=== PATIENT | male | born 1960 | race Caucasian/White ===

== ENCOUNTER 2024-04-05 17:41 | Inpatient (IN) | payer OTHER ==
[2024-04-05] MEDS ORDERED: CEFEPIME 2 GM/100 ML BAG IVPB ONE (18:30)
[2024-04-05 18:38] LABS: VENOUS O2 SATURATION 88.3 % (70-80); VENOUS PH 7.317 (7.310-7.410)
[2024-04-05 18:45] LABS: HEMATOCRIT 31.7 % (35.4-49); HEMOGLOBIN 9.5 GM/dL (11.7-16.9); MCH 25.7 pg (25.7-33.7); MCHC 29.8 g/dl (32.0-35.9); MEAN CELL VOLUME 86.2 fl (80-96); MEAN PLT VOLUME 8.4 fl (7.5-11.1); PLATELET COUNT 511 10^3/uL (134-434); RBC 3.68 M/mm3 (4.00-5.60); RDW 18.3 % (11.9-15.9)
[2024-04-05 18:46] LABS: VENOUS PCO2 100.6 mmHg (38-52)
[2024-04-05 18:51] LABS: WHITE BLOOD COUNT 33.2 K/mm3 (4.0-10.0)
[2024-04-05 18:55] LABS: INR 1.25 (0.83-1.09)
[2024-04-05 18:58] LABS: ACTIVATED PTT 40.7 SECONDS (25.2-36.5)
[2024-04-05 19:00] LABS: CHLORIDE 92 mmol/L (98-107); POTASSIUM 3.7 mmol/L (3.5-5.1); SODIUM 142 mmol/L (136-145)
[2024-04-05 19:02] LABS: CALCIUM 10.7 mg/dL (8.5-10.1)
[2024-04-05 19:03] LABS: ALBUMIN 1.3 g/dl (3.4-5.0); BLOOD UREA NITROGEN 54.8 mg/dL (7-18); GLUCOSE,RANDOM 107 mg/dL (74-106)
[2024-04-05 19:06] LABS: CREATININE 0.4 mg/dL (0.55-1.3); SGOT/AST 35 U/L (15-37); SGPT/ALT 46 U/L (13-61)
[2024-04-05 19:07] LABS: BILIRUBIN,TOTAL 0.3 mg/dL (0.2-1); TOT PROT 7.5 g/dl (6.4-8.2)
[2024-04-05 19:08] LABS: LACTIC ACID 2.1 mmol/L (0.4-2.0)
[2024-04-05 19:09] LABS: ALK PHOS 308 U/L (45-117)
[2024-04-05 19:09] LABS: ARTERIAL BLD GAS O2 SATURATION 87.7 % (95-98); ARTERIAL BLOOD GAS BASE EXCESS 23.9 mmol/L (-2-2); ARTERIAL BLOOD GAS pH 7.403 (7.350-7.450)
[2024-04-05] MEDS: SODIUM CHLORIDE 0.9% 500 ML INFUS.BAG IV ONE (19:11)
[2024-04-05] MEDS: CEFEPIME HCL 2 GM VIAL (RESTRICTED TO ID) IVPB ONE (19:12)
[2024-04-05] MEDS: ACETAMINOPHEN 1000 MG/100 ML BAG IVPB ONE (19:12)
[2024-04-05 19:23] LABS: ANION GAP 5 mmol/L (4-13); CO2 > 45 mmol/L (21-32)
[2024-04-05] MEDS: CEFEPIME 2 GM in DEXTROSE 5%-WATER 100 ML IVPB ONE (19:36)
[2024-04-05] MEDS: VANCOMYCIN PREMIX 1.5 GM 1,500 MG/300 ML BAG IVPB ONE (19:40)
[2024-04-05] MEDS: LACTATED RINGERS SOLUTION 1000 ML INFUS.BAG IV ONE (19:56)
[2024-04-05 20:19] LABS: ANISOCYTOSIS 2+; MACROCYTOSIS 0; TARGET CELLS 1+
[2024-04-05] MEDS: MUPIROCIN 2% TOPICAL OINTMENT FOR DECOLONIZATION NS SCH (21:40)
[2024-04-05] MEDS: LACTATED RINGERS SOLUTION 1,000 ML/1,000 ML INFUS.BAG IV STA (21:40)
[2024-04-05] MEDS: CHLORHEXIDINE GLUCONATE 4% CLEANSER FOR DECOLONIZATION TP SCH (21:41)
[2024-04-05] MEDS: FAMOTIDINE 20 MG/50 ML IVPB 20 MG/50 ML MG IVPB SCH (21:41)
[2024-04-05] MEDS ORDERED: NOREPINEPHRINE BITARTRATE 4 MG/4 ML ML IV ONE (22:03)
[2024-04-05] MEDS: NOREPINEPHRINE BITARTRATE 4,000 MCG in DEXTROSE 5%-WATER - 496 ML IV SCH (22:04)
[2024-04-06] MEDS: CEFEPIME 1 GM in DEXTROSE 5%-WATER 100 ML IVPB SCH ×2 (01:31→17:14)
[2024-04-06 01:53] LABS: EPI CELLS >36 /uL (0-25.1); HYALINE CASTS 20 /uL (0-3.1); URINE APPEARANCE CLOUDY; URINE BACTERIA 46 /uL (0-1359); URINE BILIRUBIN NEGATIVE (NEGATIVE); URINE COLOR YELLOW; URINE GLUCOSE (UA) NEGATIVE (NEGATIVE); URINE KETONE NEGATIVE (NEGATIVE); URINE LEUK ESTERASE NEGATIVE (NEGATIVE); URINE NITRITE NEGATIVE (NEGATIVE); URINE PROTEIN 1+ (NEGATIVE); URINE RBC 926 /uL (0-23.9)
[2024-04-06 01:53] LABS: ARTERIAL BLD GAS O2 SATURATION 94.9 % (95-98); ARTERIAL BLOOD GAS BASE EXCESS 16.1 mmol/L (-2-2); ARTERIAL BLOOD GAS PO2 78.8 mmHg (80-100); ARTERIAL BLOOD GAS pH 7.387 (7.350-7.450)
[2024-04-06] MEDS: HYDROCORTISONE SOD SUCCINATE 100 MG/2 ML VIAL IVPB SCH (04:25)
[2024-04-06] MEDS: ACETAMINOPHEN 1000 MG/100 ML BAG IVPB PRN (05:06)
[2024-04-06] MEDS: VANCOMYCIN/WATER FOR INJ (PEG) 1,000 MG/200 ML BAG IVPB SCH ×2 (06:04→21:32)
[2024-04-06 06:54] LABS: ARTERIAL BLD GAS O2 SATURATION 81.3 % (95-98); ARTERIAL BLOOD GAS BASE EXCESS 14.2 mmol/L (-2-2); ARTERIAL BLOOD GAS PO2 49.1 mmHg (80-100); ARTERIAL BLOOD GAS pH 7.364 (7.350-7.450)
[2024-04-06 07:01] LABS: HEMATOCRIT 26.2 % (35.4-49); HEMOGLOBIN 8.3 GM/dL (11.7-16.9); MCHC 31.8 g/dl (32.0-35.9); MEAN CELL VOLUME 85.1 fl (80-96); MEAN PLT VOLUME 8.6 fl (7.5-11.1); PLATELET COUNT 446 10^3/uL (134-434); RBC 3.08 M/mm3 (4.00-5.60); RDW 18.2 % (11.9-15.9); WHITE BLOOD COUNT 29.2 K/mm3 (4.0-10.0)
[2024-04-06 07:20] LABS: POTASSIUM 3.5 mmol/L (3.5-5.1)
[2024-04-06 07:22] LABS: ALBUMIN 1.2 g/dl (3.4-5.0); CALCIUM 9.8 mg/dL (8.5-10.1)
[2024-04-06 07:23] LABS: BLOOD UREA NITROGEN 41.3 mg/dL (7-18)
[2024-04-06 07:25] LABS: CHOLESTEROL 99 mg/dL (50-200); CREATININE 0.3 mg/dL (0.55-1.3); PHOSPHOROUS 2.4 mg/dL (2.5-4.9)
[2024-04-06 07:27] LABS: BILIRUBIN,TOTAL 0.4 mg/dL (0.2-1); LDL CHOLESTEROL (ONLY SJRH) 55 mg/dL (5-100); TOT PROT 6.4 g/dl (6.4-8.2)
[2024-04-06] MEDS: ALBUTEROL SO4 0.083% IH SOL 2.5 MG/3 ML VIAL.NEB. NEB SCH (07:55)
[2024-04-06] MEDS: IPRATROPIUM BR 0.02% 0.5 MG/2.5 ML VIAL.NEB. NEB SCH (07:55)
[2024-04-06 09:02] LABS: ANISOCYTOSIS 0; MACROCYTOSIS 0
[2024-04-06] MEDS: VASopressin 40 UNITS/100 ML BAG IV SCH (09:27)
[2024-04-06] MEDS: ENOXAPARIN NA (PORCINE) 40 MG/0.4 ML DISP.SYRIN SQ SCH (09:28)
[2024-04-06] MEDS: ASPIRIN 81 MG CHEWABLE TABLETS PEG SCH (09:29)
[2024-04-06] MEDS ORDERED: PNEUMOC 20-VAL CONJ-DIP CRM/PF 0.5 ML SYRINGE IM ONE (10:00)
[2024-04-06 10:20] LABS: HDL CHOLESTEROL 16 mg/dL (40-60)
[2024-04-06] MEDS: CEFEPIME HCL 1 GM VIAL (RESTRICTED TO ID) IVPB SCH (13:41)
[2024-04-06] MEDS: VANCOMYCIN 1,000 MG in DEXTROSE 5%-WATER - 250 ML IVPB SCH (13:41)
[2024-04-06] MEDS: ALBUTEROL SO4 2.5/IPRATROPIUM 0.5 INH SOL 3 ML VIAL.NEB. NEB SCH (20:44)
[2024-04-06] MEDS: ATORVASTATIN CA 40 MG TABLET (FP) PO SCH (21:32)
[2024-04-07 08:13] LABS: HEMATOCRIT 28.8 % (35.4-49); HEMOGLOBIN 8.7 GM/dL (11.7-16.9); MCH 26.1 pg (25.7-33.7); MCHC 30.2 g/dl (32.0-35.9); MEAN CELL VOLUME 86.5 fl (80-96); MEAN PLT VOLUME 9.1 fl (7.5-11.1); PLATELET COUNT 456 10^3/uL (134-434); RBC 3.32 M/mm3 (4.00-5.60); RDW 18.3 % (11.9-15.9); WHITE BLOOD COUNT 29.3 K/mm3 (4.0-10.0)
[2024-04-07 08:28] LABS: POTASSIUM 3.2 mmol/L (3.5-5.1)
[2024-04-07 08:30] LABS: CALCIUM 10.5 mg/dL (8.5-10.1)
[2024-04-07 08:31] LABS: ALBUMIN 1.1 g/dl (3.4-5.0); BLOOD UREA NITROGEN 35.6 mg/dL (7-18); MAGNESIUM 2.1 mg/dL (1.8-2.4)
[2024-04-07 08:33] LABS: PHOSPHOROUS 3.4 mg/dL (2.5-4.9)
[2024-04-07 08:34] LABS: CREATININE 0.3 mg/dL (0.55-1.3)
[2024-04-07 08:35] LABS: BILIRUBIN,TOTAL 0.3 mg/dL (0.2-1); TOT PROT 6.5 g/dl (6.4-8.2)
[2024-04-07 09:05] LABS: ANISOCYTOSIS 0; MACROCYTOSIS 0
[2024-04-07] MEDS: MIDODRINE HCL 5 MG TABLET GT SCH (09:25)
[2024-04-07] MEDS: SODIUM CHLORIDE 1,000 ML IV STA ×2 (11:00→12:20)
[2024-04-07] MEDS: POTASSIUM CHLORIDE ORAL LIQUID 20 MEQ/15 ML GT SCH (11:00)
[2024-04-07] MEDS: AMINO ACIDS/PROTEIN HYDROLYS 30 ML LIQUID.PKT PO SCH (17:51)
[2024-04-07] MEDS: ACETAMINOPHEN 650 MG/20.3 ML ORAL SOLUTION (CUPS) PO ONE (18:52)
[2024-04-08] MEDS ORDERED: NOREPINEPHRINE BITARTRATE 4 MG/4 ML ML IV ONE (03:57)
[2024-04-08 08:12] LABS: HEMATOCRIT 27.1 % (35.4-49); MCH 26.5 pg (25.7-33.7); MCHC 29.7 g/dl (32.0-35.9); MEAN CELL VOLUME 89.5 fl (80-96); MEAN PLT VOLUME 8.8 fl (7.5-11.1); PLATELET COUNT 465 10^3/uL (134-434); RBC 3.03 M/mm3 (4.00-5.60); RDW 18.6 % (11.9-15.9); WHITE BLOOD COUNT 26.1 K/mm3 (4.0-10.0)
[2024-04-08 08:27] LABS: POTASSIUM 4.4 mmol/L (3.5-5.1)
[2024-04-08 08:34] LABS: ALBUMIN 1.1 g/dl (3.4-5.0); BLOOD UREA NITROGEN 44.6 mg/dL (7-18); CALCIUM 10.3 mg/dL (8.5-10.1); MAGNESIUM 2.3 mg/dL (1.8-2.4)
[2024-04-08 08:37] LABS: CREATININE 0.4 mg/dL (0.55-1.3); PHOSPHOROUS 4.4 mg/dL (2.5-4.9)
[2024-04-08 08:38] LABS: TOT PROT 6.4 g/dl (6.4-8.2)
[2024-04-08 08:39] LABS: BILIRUBIN,TOTAL 0.3 mg/dL (0.2-1)
[2024-04-08 09:13] LABS: ANISOCYTOSIS 2+; MACROCYTOSIS 0
[2024-04-08] MEDS: ASCORBIC ACID 500 MG/5 ML UNIT DOSE CUP PEG SCH (09:23)
[2024-04-08] MEDS: NOREPINEPHRINE 0.9 % NACL 8 MG/250 ML BAG IVPB SCH (20:36)
[2024-04-08] MEDS: DOCUSATE NA 100 MG/10 ML UNIT-DOSE CUPS PEG SCH (21:09)
[2024-04-08] MEDS: SENNOSIDES 8.8 MG/5 ML SYRUP PEG SCH (21:09)
[2024-04-09 06:50] LABS: HEMATOCRIT 26.7 % (35.4-49); HEMOGLOBIN 7.9 GM/dL (11.7-16.9); MCH 26.9 pg (25.7-33.7); MCHC 29.7 g/dl (32.0-35.9); MEAN CELL VOLUME 90.7 fl (80-96); PLATELET COUNT 428 10^3/uL (134-434); RBC 2.95 M/mm3 (4.00-5.60); RDW 18.2 % (11.9-15.9); WHITE BLOOD COUNT 24.5 K/mm3 (4.0-10.0)
[2024-04-09 07:09] LABS: POTASSIUM 4.8 mmol/L (3.5-5.1)
[2024-04-09 07:16] LABS: ARTERIAL BLD GAS O2 SATURATION 90.5 % (95-98); ARTERIAL BLOOD GAS BASE EXCESS 5.5 mmol/L (-2-2); ARTERIAL BLOOD GAS PO2 78.9 mmHg (80-100)
[2024-04-09 07:17] LABS: ALBUMIN 1.1 g/dl (3.4-5.0); CALCIUM 10.3 mg/dL (8.5-10.1); MAGNESIUM 2.5 mg/dL (1.8-2.4)
[2024-04-09 07:18] LABS: BLOOD UREA NITROGEN 60.8 mg/dL (7-18)
[2024-04-09 07:19] LABS: PHOSPHOROUS 4.5 mg/dL (2.5-4.9)
[2024-04-09 07:20] LABS: BILIRUBIN,TOTAL 0.3 mg/dL (0.2-1); CREATININE 0.6 mg/dL (0.55-1.3); TOT PROT 6.4 g/dl (6.4-8.2)
[2024-04-09 07:25] LABS: VENT MODE A/C
[2024-04-09 07:26] LABS: VENT RATE 24
[2024-04-09 07:29] LABS: ARTERIAL BLOOD GAS pH 7.146 (7.350-7.450)
[2024-04-09] MEDS: SODIUM BICARBONATE 8.4% 50 MEQ/50 ML DISP.SYRIN IVPUSH ONE (08:18)
[2024-04-09 09:43] LABS: ARTERIAL BLD GAS O2 SATURATION 91.1 % (95-98); ARTERIAL BLOOD GAS BASE EXCESS 6.5 mmol/L (-2-2); ARTERIAL BLOOD GAS PO2 79.5 mmHg (80-100)
[2024-04-09 09:44] LABS: ALLENS TEST POSITIVE
[2024-04-09 09:45] LABS: VENT MODE AC; VENT RATE 26
[2024-04-09 09:48] LABS: ARTERIAL BLOOD GAS pH 7.166 (7.350-7.450)
[2024-04-09] MEDS: CEFTAZIDIME/AVIBACTAM 2.5 GM in DEXTROSE 5%-WATER - 250 ML IVPB SCH (12:07)
[2024-04-09] MEDS ORDERED: METOCLOPRAMIDE HCL INJECTION 10 MG/2 ML VIAL IVPUSH PRN (14:30)
[2024-04-09] MEDS: METOCLOPRAMIDE HCL INJECTION 10 MG/2 ML VIAL IVPUSH SCH (15:39)
[2024-04-09 16:08] LABS: ARTERIAL BLD GAS O2 SATURATION 95.9 % (95-98); ARTERIAL BLOOD GAS BASE EXCESS 8.1 mmol/L (-2-2); ARTERIAL BLOOD GAS PO2 104.4 mmHg (80-100)
[2024-04-09 16:11] LABS: ALLENS TEST POSITIVE; VENT MODE A/C
[2024-04-09 16:12] LABS: VENT RATE 26
[2024-04-09 16:13] LABS: ARTERIAL BLOOD GAS pH 7.188 (7.350-7.450)
[2024-04-09 20:27] LABS: ARTERIAL BLOOD GAS BASE EXCESS 9.2 mmol/L (-2-2); ARTERIAL BLOOD GAS PO2 130.2 mmHg (80-100)
[2024-04-09 20:29] LABS: VENT MODE A/C; VENT RATE 26
[2024-04-10 05:58] LABS: ARTERIAL BLD GAS O2 SATURATION 96.4 % (95-98); ARTERIAL BLOOD GAS BASE EXCESS 10.2 mmol/L (-2-2); ARTERIAL BLOOD GAS PO2 96.8 mmHg (80-100); ARTERIAL BLOOD GAS pH 7.312 (7.350-7.450)
[2024-04-10 06:00] LABS: VENT MODE A/C; VENT RATE 26
[2024-04-10 06:50] LABS: HEMATOCRIT 22.2 % (35.4-49); MCH 27.2 pg (25.7-33.7); MCHC 30.7 g/dl (32.0-35.9); MEAN CELL VOLUME 88.4 fl (80-96); MEAN PLT VOLUME 8.9 fl (7.5-11.1); PLATELET COUNT 353 10^3/uL (134-434); RBC 2.51 M/mm3 (4.00-5.60); RDW 18.2 % (11.9-15.9); WHITE BLOOD COUNT 19.1 K/mm3 (4.0-10.0)
[2024-04-10 07:07] LABS: HEMOGLOBIN 6.8 GM/dL (11.7-16.9)
[2024-04-10 07:09] LABS: POTASSIUM 3.8 mmol/L (3.5-5.1)
[2024-04-10 07:13] LABS: BLOOD UREA NITROGEN 74.3 mg/dL (7-18); MAGNESIUM 2.5 mg/dL (1.8-2.4)
[2024-04-10 07:15] LABS: PHOSPHOROUS 3.8 mg/dL (2.5-4.9)
[2024-04-10 07:16] LABS: CREATININE 0.8 mg/dL (0.55-1.3)
[2024-04-10 07:17] LABS: BILIRUBIN,TOTAL 0.4 mg/dL (0.2-1)
[2024-04-10 08:48] LABS: HEMATOCRIT 21.9 % (35.4-49); MCH 26.9 pg (25.7-33.7); MCHC 30.6 g/dl (32.0-35.9); MEAN CELL VOLUME 87.8 fl (80-96); MEAN PLT VOLUME 8.8 fl (7.5-11.1); PLATELET COUNT 348 10^3/uL (134-434); WHITE BLOOD COUNT 18.3 K/mm3 (4.0-10.0)
[2024-04-10 08:54] LABS: HEMOGLOBIN 6.7 GM/dL (11.7-16.9)
[2024-04-10 09:04] LABS: ANISOCYTOSIS 1+; MACROCYTOSIS 0
[2024-04-10 09:08] LABS: PLATELET ESTIMATE ADEQUATE
[2024-04-10 09:24] LABS: RETICULOCYTES 1.07 % (0.5-1.5)
[2024-04-10] MEDS: SODIUM CHLORIDE 1,000 ML IV SCH (14:30)
[2024-04-10 14:32] VITALS: BMI 24.0
[2024-04-10 17:19] LABS: HEMOGLOBIN 7.6 GM/dL (11.7-16.9); MCH 27.1 pg (25.7-33.7); MCHC 31.8 g/dl (32.0-35.9); MEAN CELL VOLUME 85.3 fl (80-96); MEAN PLT VOLUME 8.8 fl (7.5-11.1); PLATELET COUNT 318 10^3/uL (134-434); RBC 2.81 M/mm3 (4.00-5.60); RDW 17.8 % (11.9-15.9); WHITE BLOOD COUNT 16.2 K/mm3 (4.0-10.0)
[2024-04-10 17:43] LABS: ANISOCYTOSIS 2+; MACROCYTOSIS 0; TARGET CELLS 1+
[2024-04-11 06:42] LABS: HEMATOCRIT 23.9 % (35.4-49); HEMOGLOBIN 7.8 GM/dL (11.7-16.9); MCH 29.2 pg (25.7-33.7); MCHC 32.5 g/dl (32.0-35.9); MEAN CELL VOLUME 89.9 fl (80-96); MEAN PLT VOLUME 8.9 fl (7.5-11.1); PLATELET COUNT 309 10^3/uL (134-434); RBC 2.66 M/mm3 (4.00-5.60); RDW 17.5 % (11.9-15.9); WHITE BLOOD COUNT 13.4 K/mm3 (4.0-10.0)
[2024-04-11 06:48] LABS: POTASSIUM 3.6 mmol/L (3.5-5.1)
[2024-04-11 06:52] LABS: CALCIUM 9.6 mg/dL (8.5-10.1)
[2024-04-11 06:53] LABS: BLOOD UREA NITROGEN 82.2 mg/dL (7-18); MAGNESIUM 2.4 mg/dL (1.8-2.4)
[2024-04-11 06:55] LABS: CREATININE 0.8 mg/dL (0.55-1.3)
[2024-04-11 06:56] LABS: BILIRUBIN,TOTAL 0.4 mg/dL (0.2-1); PHOSPHOROUS 3.7 mg/dL (2.5-4.9); TOT PROT 6.2 g/dl (6.4-8.2)
[2024-04-11 09:08] LABS: ANISOCYTOSIS 0; HELMET CELLS 0; HOWELL-JOLLY BODIES 0; MACROCYTOSIS 0; OVALOCYTE 0; ROULEAU 0; SICKELED CELLS 0; TARGET CELLS 0; TEAR DROP CELLS 0; TOXIC GRANULATION 0
[2024-04-11] MEDS: SODIUM CHLORIDE 1,000 ML IV SCH (14:38)
[2024-04-11] MEDS: HYDROCORTISONE SOD SUCCINATE 100 MG/2 ML VIAL IVPB SCH (17:14)
[2024-04-12 07:34] LABS: HEMATOCRIT 23.7 % (35.4-49); HEMOGLOBIN 7.7 GM/dL (11.7-16.9); MCH 29.6 pg (25.7-33.7); MCHC 32.6 g/dl (32.0-35.9); MEAN CELL VOLUME 90.8 fl (80-96); MEAN PLT VOLUME 9.1 fl (7.5-11.1); PLATELET COUNT 327 10^3/uL (134-434); RBC 2.61 M/mm3 (4.00-5.60); RDW 17.5 % (11.9-15.9); WHITE BLOOD COUNT 12.7 K/mm3 (4.0-10.0)
[2024-04-12 07:38] LABS: POTASSIUM 3.1 mmol/L (3.5-5.1)
[2024-04-12 07:39] LABS: BLOOD UREA NITROGEN 81.6 mg/dL (7-18); CALCIUM 9.4 mg/dL (8.5-10.1)
[2024-04-12 07:40] LABS: MAGNESIUM 2.2 mg/dL (1.8-2.4)
[2024-04-12 07:42] LABS: CREATININE 0.8 mg/dL (0.55-1.3); PHOSPHOROUS 3.5 mg/dL (2.5-4.9)
[2024-04-12 07:43] LABS: BILIRUBIN,TOTAL 0.4 mg/dL (0.2-1)
[2024-04-12] MEDS: POTASSIUM CHLORIDE ORAL LIQUID 20 MEQ/15 ML PO ONE (09:23)
[2024-04-12 09:57] LABS: ANISOCYTOSIS 0; MACROCYTOSIS 0
[2024-04-12 10:16] LABS: PLATELET ESTIMATE ADEQUATE
[2024-04-12] MEDS: LACTATED RINGERS SOLUTION 1,000 ML/1,000 ML INFUS.BAG IV STA (13:33)
[2024-04-12] MEDS: HYDROCORTISONE SOD SUCCINATE 100 MG/2 ML VIAL IVPUSH SCH (14:19)
[2024-04-12] MEDS: AMINO ACIDS 4.25%/D5W 1,000 ML IV SCH (14:19)
[2024-04-12] MEDS ORDERED: SODIUM CHLORIDE 1,000 ML IV SCH (19:48)
[2024-04-12] MEDS: BISACODYL 10 MG SUPP.RECT PR ONE (21:20)
[2024-04-12] MEDS: HEPARIN NA (PORCINE) 5,000 UNITS/ML 1ML VIAL SQ SCH (21:22)
[2024-04-12] MEDS: SENNOSIDES 8.8 MG/5 ML SYRUP PEG SCH (21:23)
[2024-04-12] MEDS: CHLORHEXIDINE GLUCONATE 4% CLEANSER FOR DECOLONIZATION TP SCH (21:23)
[2024-04-12] MEDS: FAMOTIDINE 20 MG/50 ML IVPB 20 MG/50 ML MG IVPB SCH (21:23)
[2024-04-12] MEDS: ATORVASTATIN CA 40 MG TABLET (FP) PO SCH (21:30)
[2024-04-12] MEDS ORDERED: HEPARIN NA (PORCINE) 5,000 UNITS/ML 1ML VIAL SQ SCH (22:00)
[2024-04-13] MEDS: HYDROCORTISONE SOD SUCCINATE 100 MG/2 ML VIAL IVPUSH SCH ×2 (01:00→17:02)
[2024-04-13] MEDS: CEFTAZIDIME/AVIBACTAM 2.5 GM in DEXTROSE 5%-WATER - 250 ML IVPB SCH (02:45)
[2024-04-13] MEDS: ACETAMINOPHEN 1000 MG/100 ML BAG IVPB PRN (06:25)
[2024-04-13 06:34] LABS: HEMATOCRIT 23.9 % (35.4-49); HEMOGLOBIN 7.5 GM/dL (11.7-16.9); MCH 28.9 pg (25.7-33.7); MCHC 31.6 g/dl (32.0-35.9); MEAN CELL VOLUME 91.6 fl (80-96); MEAN PLT VOLUME 9.2 fl (7.5-11.1); PLATELET COUNT 299 10^3/uL (134-434); RBC 2.61 M/mm3 (4.00-5.60); RDW 17.6 % (11.9-15.9); WHITE BLOOD COUNT 11.9 K/mm3 (4.0-10.0)
[2024-04-13 06:53] LABS: POTASSIUM 3.5 mmol/L (3.5-5.1)
[2024-04-13 06:55] LABS: BLOOD UREA NITROGEN 83.5 mg/dL (7-18); CALCIUM 9.6 mg/dL (8.5-10.1); MAGNESIUM 2.1 mg/dL (1.8-2.4)
[2024-04-13 06:58] LABS: CREATININE 0.8 mg/dL (0.55-1.3); PHOSPHOROUS 3.5 mg/dL (2.5-4.9)
[2024-04-13 07:00] LABS: BILIRUBIN,TOTAL 0.2 mg/dL (0.2-1); TOT PROT 5.5 g/dl (6.4-8.2)
[2024-04-13 08:37] LABS: ANISOCYTOSIS 0; HELMET CELLS 0; HOWELL-JOLLY BODIES 0; MACROCYTOSIS 0; OVALOCYTE 0; ROULEAU 0; SICKELED CELLS 0; TARGET CELLS 0; TEAR DROP CELLS 0; TOXIC GRANULATION 0
[2024-04-13] MEDS: POLYETHYLENE GLYCOL (HEALTHYLAX) 3350 17 GM PACKET PO SCH (10:00)
[2024-04-13] MEDS: MIDODRINE HCL 5 MG TABLET GT SCH (10:00)
[2024-04-13] MEDS: ASPIRIN 81 MG CHEWABLE TABLETS PEG SCH (10:00)
[2024-04-13] MEDS: DOCUSATE NA 100 MG/10 ML UNIT-DOSE CUPS PEG SCH (10:00)
[2024-04-13] MEDS: AMINO ACIDS/PROTEIN HYDROLYS 30 ML LIQUID.PKT PO SCH (10:00)
[2024-04-13] MEDS: ASCORBIC ACID 500 MG/5 ML UNIT DOSE CUP PEG SCH (10:00)
[2024-04-13] MEDS ORDERED: POLYETHYLENE GLYCOL (HEALTHYLAX) 3350 17 GM PACKET GT SCH (11:27)
[2024-04-13] MEDS: LACTULOSE 20 GM/30 ML UDC (FOR ORAL USE ONLY) GT ONE (11:51)
[2024-04-13] MEDS: BACITRACIN ZINC 15 GM TUBE TOPICAL OINTMENT TP SCH (11:52)
[2024-04-13] MEDS: AMINO ACIDS 4.25%/D5W 1,000 ML IV SCH (12:47)
[2024-04-13] MEDS ORDERED: SODIUM CHLORIDE 1,000 ML IV STA (15:31)
[2024-04-13 16:45] LABS: ALLENS TEST POSITIVE; ARTERIAL BLOOD GAS BASE EXCESS 2.1 mmol/L (-2-2); ARTERIAL BLOOD GAS PO2 80.4 mmHg (80-100); ARTERIAL BLOOD GAS pH 7.222 (7.350-7.450); VENT MODE A/C; VENT RATE 26
[2024-04-13] MEDS: SODIUM CHLORIDE 1,000 ML IV SCH ×2 (16:55→21:37)
[2024-04-13] MEDS: POTASSIUM CHLORIDE ORAL LIQUID 20 MEQ/15 ML GT ONE (16:59)
[2024-04-13] MEDS: NOREPINEPHRINE 0.9 % NACL 8 MG/250 ML BAG IVPB SCH ×2 (17:14→21:34)
[2024-04-13 18:01] LABS: EPI CELLS 12 /uL (0-25.1); HYALINE CASTS 2 /uL (0-3.1); PH,URINE 5.5 (5.0-8.0); URINE APPEARANCE CLOUDY; URINE BACTERIA 20 /uL (0-1359); URINE BILIRUBIN NEGATIVE (NEGATIVE); URINE COLOR YELLOW; URINE GLUCOSE (UA) NEGATIVE (NEGATIVE); URINE KETONE NEGATIVE (NEGATIVE); URINE LEUK ESTERASE NEGATIVE (NEGATIVE); URINE NITRITE NEGATIVE (NEGATIVE); URINE PROTEIN 1+ (NEGATIVE); URINE UROBILINOGEN 0.2 mg/dL (0.2-1.0); URINE WBC 21 /uL (0-25.8)
[2024-04-13 19:25] LABS: URINE RBC 28.4 /uL (0-23.9)
[2024-04-13 19:26] LABS: URINE CRYSTALS MODERATE /hpf; YEAST FEW (NEGATIVE)
[2024-04-13 21:27] LABS: ARTERIAL BLOOD GAS BASE EXCESS 1.7 mmol/L (-2-2); ARTERIAL BLOOD GAS PO2 59.4 mmHg (80-100); ARTERIAL BLOOD GAS pH 7.261 (7.350-7.450)
[2024-04-13 21:34] LABS: HEMATOCRIT 25.4 % (35.4-49); HEMOGLOBIN 7.8 GM/dL (11.7-16.9); MCH 25.8 pg (25.7-33.7); MCHC 30.5 g/dl (32.0-35.9); MEAN CELL VOLUME 84.7 fl (80-96); PLATELET COUNT 363 10^3/uL (134-434); RDW 17.8 % (11.9-15.9); WHITE BLOOD COUNT 14.3 K/mm3 (4.0-10.0)
[2024-04-13] MEDS: MUPIROCIN 2% TOPICAL OINTMENT FOR DECOLONIZATION NS SCH (21:37)
[2024-04-13] MEDS: CHLORHEXIDINE GLUCONATE 4% CLEANSER FOR DECOLONIZATION TP SCH (21:38)
[2024-04-13] MEDS: ATORVASTATIN CA 40 MG TABLET (FP) PO SCH (21:38)
[2024-04-13] MEDS: HEPARIN NA (PORCINE) 5,000 UNITS/ML 1ML VIAL SQ SCH (21:38)
[2024-04-13] MEDS: POLYETHYLENE GLYCOL (HEALTHYLAX) 3350 17 GM PACKET GT SCH (21:38)
[2024-04-13] MEDS: SENNOSIDES 8.8 MG/5 ML SYRUP PEG SCH (21:39)
[2024-04-13] MEDS: FAMOTIDINE 20 MG/50 ML IVPB 20 MG/50 ML MG IVPB SCH (21:39)
[2024-04-13 21:49] LABS: POTASSIUM 3.7 mmol/L (3.5-5.1)
[2024-04-13 21:51] LABS: BLOOD UREA NITROGEN 80.8 mg/dL (7-18); CALCIUM 9.2 mg/dL (8.5-10.1)
[2024-04-13 21:55] LABS: CREATININE 0.7 mg/dL (0.55-1.3)
[2024-04-13 21:56] LABS: BILIRUBIN,TOTAL 0.2 mg/dL (0.2-1); TOT PROT 5.9 g/dl (6.4-8.2)
[2024-04-13] MEDS ORDERED: CHLORHEXIDINE GLUCONATE 4% CLEANSER FOR DECOLONIZATION TP SCH (22:00)
[2024-04-13 22:38] LABS: ANISOCYTOSIS 1+
[2024-04-13 22:46] LABS: PLATELET ESTIMATE ADEQUATE
[2024-04-14 00:25] LABS: ARTERIAL BLD GAS O2 SATURATION 94.9 % (95-98); ARTERIAL BLOOD GAS BASE EXCESS -0.3 mmol/L (-2-2); ARTERIAL BLOOD GAS PO2 86.2 mmHg (80-100); EPI CELLS 10 /uL (0-25.1); HYALINE CASTS 1 /uL (0-3.1); PH,URINE 5.5 (5.0-8.0); URINE APPEARANCE CLEAR; URINE BACTERIA 7 /uL (0-1359); URINE BILIRUBIN NEGATIVE (NEGATIVE); URINE COLOR YELLOW; URINE GLUCOSE (UA) NEGATIVE (NEGATIVE); URINE KETONE NEGATIVE (NEGATIVE); URINE LEUK ESTERASE NEGATIVE (NEGATIVE); URINE NITRITE NEGATIVE (NEGATIVE); URINE PROTEIN 1+ (NEGATIVE); URINE RBC 1 /uL (0-23.9); URINE UROBILINOGEN 0.2 mg/dL (0.2-1.0); URINE WBC 19 /uL (0-25.8)
[2024-04-14] MEDS: CEFTAZIDIME/AVIBACTAM 2.5 GM in DEXTROSE 5%-WATER - 250 ML IVPB SCH (01:10)
[2024-04-14 04:48] LABS: URINE CRYSTALS FEW /hpf; YEAST FEW (NEGATIVE)
[2024-04-14] MEDS: HYDROCORTISONE SOD SUCCINATE 100 MG/2 ML VIAL IVPUSH SCH (06:18)
[2024-04-14 06:37] LABS: ARTERIAL BLD GAS O2 SATURATION 94.8 % (95-98); ARTERIAL BLOOD GAS pH 7.252 (7.350-7.450)
[2024-04-14 06:39] LABS: VENT MODE A/C; VENT RATE 30
[2024-04-14 06:45] LABS: HEMATOCRIT 22.3 % (35.4-49); HEMOGLOBIN 7.1 GM/dL (11.7-16.9); MCH 27.2 pg (25.7-33.7); MCHC 31.6 g/dl (32.0-35.9); MEAN CELL VOLUME 85.9 fl (80-96); MEAN PLT VOLUME 9.2 fl (7.5-11.1); PLATELET COUNT 364 10^3/uL (134-434); RDW 17.4 % (11.9-15.9)
[2024-04-14 07:02] LABS: POTASSIUM 3.7 mmol/L (3.5-5.1)
[2024-04-14 07:07] LABS: CALCIUM 9.5 mg/dL (8.5-10.1)
[2024-04-14 07:09] LABS: CREATININE 0.8 mg/dL (0.55-1.3)
[2024-04-14 07:10] LABS: BILIRUBIN,TOTAL 0.4 mg/dL (0.2-1)
[2024-04-14 07:11] LABS: TOT PROT 5.5 g/dl (6.4-8.2)
[2024-04-14 07:16] LABS: PHOSPHOROUS 2.9 mg/dL (2.5-4.9)
[2024-04-14] MEDS: ASPIRIN 81 MG CHEWABLE TABLETS PEG SCH (09:33)
[2024-04-14] MEDS: AMINO ACIDS/PROTEIN HYDROLYS 30 ML LIQUID.PKT PO SCH (09:33)
[2024-04-14] MEDS: BACITRACIN ZINC 15 GM TUBE TOPICAL OINTMENT TP SCH (09:33)
[2024-04-14] MEDS: DOCUSATE NA 100 MG/10 ML UNIT-DOSE CUPS PEG SCH (09:35)
[2024-04-14] MEDS: MIDODRINE HCL 5 MG TABLET GT SCH (09:36)
[2024-04-14] MEDS: ASCORBIC ACID 500 MG/5 ML UNIT DOSE CUP PEG SCH (09:36)
[2024-04-14 09:37] LABS: ANISOCYTOSIS 2+; MACROCYTOSIS 0
[2024-04-14] MEDS: AMINO ACIDS 4.25%/D5W 1,000 ML IV SCH (13:02)
[2024-04-14] MEDS: ACETAMINOPHEN 1000 MG/100 ML BAG IVPB PRN (13:02)
[2024-04-15 07:23] LABS: HEMATOCRIT 22.5 % (35.4-49); MCH 26.4 pg (25.7-33.7); MEAN CELL VOLUME 85.3 fl (80-96); MEAN PLT VOLUME 9.1 fl (7.5-11.1); PLATELET COUNT 425 10^3/uL (134-434); RBC 2.63 M/mm3 (4.00-5.60); RDW 17.9 % (11.9-15.9)
[2024-04-15 07:33] LABS: POTASSIUM 3.2 mmol/L (3.5-5.1)
[2024-04-15 07:37] LABS: CALCIUM 9.6 mg/dL (8.5-10.1)
[2024-04-15 07:38] LABS: ALBUMIN 1.1 g/dl (3.4-5.0); BLOOD UREA NITROGEN 76.9 mg/dL (7-18); MAGNESIUM 1.9 mg/dL (1.8-2.4)
[2024-04-15 07:41] LABS: CREATININE 0.8 mg/dL (0.55-1.3); PHOSPHOROUS 2.5 mg/dL (2.5-4.9)
[2024-04-15 07:42] LABS: TOT PROT 5.5 g/dl (6.4-8.2)
[2024-04-15 07:43] LABS: BILIRUBIN,TOTAL 0.2 mg/dL (0.2-1)
[2024-04-15] MEDS: LACTULOSE 20 GM/30 ML UDC (FOR ORAL USE ONLY) PO PRN (09:19)
[2024-04-15] MEDS: POTASSIUM CHLORIDE ORAL LIQUID 20 MEQ/15 ML GT SCH (09:33)
[2024-04-15 09:45] LABS: ANISOCYTOSIS 0; HELMET CELLS 0; HOWELL-JOLLY BODIES 0; MACROCYTOSIS 0; OVALOCYTE 0; ROULEAU 0; SICKELED CELLS 0; TARGET CELLS 0; TEAR DROP CELLS 0; TOXIC GRANULATION 0
[2024-04-16 07:00] LABS: POTASSIUM 3.9 mmol/L (3.5-5.1)
[2024-04-16 07:02] LABS: ALBUMIN 1.1 g/dl (3.4-5.0); BLOOD UREA NITROGEN 72.9 mg/dL (7-18); CALCIUM 9.7 mg/dL (8.5-10.1); MAGNESIUM 1.9 mg/dL (1.8-2.4)
[2024-04-16 07:06] LABS: CREATININE 0.7 mg/dL (0.55-1.3)
[2024-04-16 07:07] LABS: BILIRUBIN,TOTAL 0.2 mg/dL (0.2-1); TOT PROT 5.7 g/dl (6.4-8.2)
[2024-04-16 07:24] LABS: HEMATOCRIT 22.4 % (35.4-49); MCH 26.3 pg (25.7-33.7); MCHC 30.5 g/dl (32.0-35.9); PLATELET COUNT 439 10^3/uL (134-434); RBC 2.61 M/mm3 (4.00-5.60); RDW 18.5 % (11.9-15.9)
[2024-04-16 07:48] LABS: HEMOGLOBIN 6.9 GM/dL (11.7-16.9)
[2024-04-16 08:51] LABS: ANISOCYTOSIS 0; HELMET CELLS 0; HOWELL-JOLLY BODIES 0; MACROCYTOSIS 0; OVALOCYTE 0; ROULEAU 0; SICKELED CELLS 0; TARGET CELLS 0; TEAR DROP CELLS 0; TOXIC GRANULATION 0
[2024-04-16 15:06] LABS: ARTERIAL BLD GAS O2 SATURATION 93.2 % (95-98); ARTERIAL BLOOD GAS BASE EXCESS 1.5 mmol/L (-2-2); ARTERIAL BLOOD GAS PO2 85.7 mmHg (80-100)
[2024-04-16 15:19] LABS: VENT MODE A/C; VENT RATE 18
[2024-04-16 15:35] LABS: ARTERIAL BLOOD GAS pH 7.172 (7.350-7.450)
[2024-04-16 17:42] LABS: ARTERIAL BLD GAS O2 SATURATION 89.6 % (95-98); ARTERIAL BLOOD GAS BASE EXCESS 3.3 mmol/L (-2-2); ARTERIAL BLOOD GAS PO2 64.4 mmHg (80-100); ARTERIAL BLOOD GAS pH 7.296 (7.350-7.450)
[2024-04-16 17:43] LABS: VENT MODE A/C; VENT RATE 30
[2024-04-16] MEDS ORDERED: ALBUTEROL SO4 0.5 % INH SOLN 2.5 MG/0.5 ML VIAL.NEB. NEB PRN (22:21)
[2024-04-17 07:00] LABS: HEMATOCRIT 24.8 % (35.4-49); HEMOGLOBIN 7.9 GM/dL (11.7-16.9); MCH 27.2 pg (25.7-33.7); MCHC 31.8 g/dl (32.0-35.9); MEAN CELL VOLUME 85.7 fl (80-96); PLATELET COUNT 379 10^3/uL (134-434); RDW 17.2 % (11.9-15.9); WHITE BLOOD COUNT 16.1 K/mm3 (4.0-10.0)
[2024-04-17 07:14] LABS: POTASSIUM 3.5 mmol/L (3.5-5.1)
[2024-04-17 07:17] LABS: CALCIUM 9.8 mg/dL (8.5-10.1)
[2024-04-17 07:19] LABS: ALBUMIN 1.2 g/dl (3.4-5.0); BLOOD UREA NITROGEN 70.3 mg/dL (7-18); MAGNESIUM 1.8 mg/dL (1.8-2.4)
[2024-04-17 07:23] LABS: CREATININE 0.8 mg/dL (0.55-1.3)
[2024-04-17 07:24] LABS: BILIRUBIN,TOTAL 0.4 mg/dL (0.2-1); TOT PROT 5.5 g/dl (6.4-8.2)
[2024-04-17 09:04] LABS: ANISOCYTOSIS 0; MACROCYTOSIS 0
[2024-04-17] MEDS: PEG 3350/NA SULF BICARB CL/KCL 4000 ML SOLN.RECON GT ONE (12:22)
[2024-04-18 07:18] LABS: HEMATOCRIT 24.2 % (35.4-49); HEMOGLOBIN 7.8 GM/dL (11.7-16.9); MCH 27.3 pg (25.7-33.7); MCHC 32.2 g/dl (32.0-35.9); MEAN CELL VOLUME 84.8 fl (80-96); MEAN PLT VOLUME 9.2 fl (7.5-11.1); PLATELET COUNT 347 10^3/uL (134-434); RBC 2.85 M/mm3 (4.00-5.60); RDW 17.5 % (11.9-15.9); WHITE BLOOD COUNT 14.3 K/mm3 (4.0-10.0)
[2024-04-18 07:28] LABS: CHLORIDE 102 mmol/L (98-107); SODIUM 143 mmol/L (136-145)
[2024-04-18 07:34] LABS: ALBUMIN 1.1 g/dl (3.4-5.0); BLOOD UREA NITROGEN 65.7 mg/dL (7-18); CALCIUM 9.3 mg/dL (8.5-10.1); CO2 34 mmol/L (21-32); GLUCOSE,RANDOM 94 mg/dL (74-106)
[2024-04-18 07:35] LABS: MAGNESIUM 1.9 mg/dL (1.8-2.4); PHOSPHOROUS 2.3 mg/dL (2.5-4.9); SGPT/ALT 9 U/L (13-61)
[2024-04-18 07:37] LABS: BILIRUBIN,TOTAL 0.3 mg/dL (0.2-1); CREATININE 0.7 mg/dL (0.55-1.3); SGOT/AST 15 U/L (15-37); TOT PROT 5.5 g/dl (6.4-8.2)
[2024-04-18 07:39] LABS: ALK PHOS 155 U/L (45-117)
[2024-04-18 07:44] LABS: ANION GAP 7 mmol/L (4-13); POTASSIUM 2.8 mmol/L (3.5-5.1)
[2024-04-18] MEDS: KCL 20 MEQ PREMIX BAG 20 MEQ/100 ML INFUS.BAG IVPB SCH ×2 (08:54→16:34)
[2024-04-18] MEDS: POTASSIUM CHLORIDE ORAL LIQUID 20 MEQ/15 ML GT ONE (08:54)
[2024-04-18] MEDS: NAPH,MB-DB/K PH,MBDB POWDER PACKET PO SCH (08:54)
[2024-04-18 09:06] LABS: ANISOCYTOSIS 2+; MACROCYTOSIS 0; TARGET CELLS 1+
[2024-04-18] MEDS: DOXAZOSIN MESYLATE 4 MG TABLET GT SCH (12:31)
[2024-04-18] MEDS: ACETAMINOPHEN 1000 MG/100 ML BAG IVPB PRN (14:17)
[2024-04-18] MEDS: METOCLOPRAMIDE HCL INJECTION 10 MG/2 ML VIAL IVPUSH PRN (14:17)
[2024-04-18] MEDS: ALBUTEROL SO4 2.5/IPRATROPIUM 0.5 INH SOL 3 ML VIAL.NEB. NEB SCH (20:30)
[2024-04-19 06:46] LABS: ARTERIAL BLD GAS O2 SATURATION 89.2 % (95-98); ARTERIAL BLOOD GAS BASE EXCESS 0.3 mmol/L (-2-2); ARTERIAL BLOOD GAS pH 7.295 (7.350-7.450)
[2024-04-19 06:51] LABS: VENT MODE A/C; VENT RATE 30
[2024-04-19 08:11] LABS: HEMATOCRIT 22.7 % (35.4-49); HEMOGLOBIN 7.3 GM/dL (11.7-16.9); MCH 27.1 pg (25.7-33.7); MEAN CELL VOLUME 84.7 fl (80-96); MEAN PLT VOLUME 9.4 fl (7.5-11.1); PLATELET COUNT 305 10^3/uL (134-434); RBC 2.68 M/mm3 (4.00-5.60); RDW 17.7 % (11.9-15.9); WHITE BLOOD COUNT 13.1 K/mm3 (4.0-10.0)
[2024-04-19 08:17] LABS: CHLORIDE 103 mmol/L (98-107); SODIUM 142 mmol/L (136-145)
[2024-04-19 08:19] LABS: CALCIUM 9.7 mg/dL (8.5-10.1)
[2024-04-19 08:20] LABS: ALBUMIN 1.1 g/dl (3.4-5.0); ANION GAP 3 mmol/L (4-13); CO2 36 mmol/L (21-32); GLUCOSE,RANDOM 90 mg/dL (74-106)
[2024-04-19 08:23] LABS: CREATININE 0.7 mg/dL (0.55-1.3); PHOSPHOROUS 3.3 mg/dL (2.5-4.9); SGOT/AST 14 U/L (15-37); SGPT/ALT < 6 U/L (13-61)
[2024-04-19 08:24] LABS: BILIRUBIN,TOTAL 0.2 mg/dL (0.2-1)
[2024-04-19 08:25] LABS: TOT PROT 5.3 g/dl (6.4-8.2)
[2024-04-19 08:26] LABS: ALK PHOS 153 U/L (45-117)
[2024-04-19 09:33] LABS: ANISOCYTOSIS 1+; MACROCYTOSIS 0; OVALOCYTE 1+
[2024-04-19] MEDS: SODIUM CHLORIDE 500 ML IV STA (14:18)
[2024-04-19] MEDS: ACETAMINOPHEN 1000 MG/100 ML BAG IVPB PRN (14:53)
[2024-04-19] MEDS: LACTATED RINGERS SOLUTION 1,000 ML/1,000 ML INFUS.BAG IV SCH (15:29)
[2024-04-19 15:59] LABS: HEMATOCRIT 22.8 % (35.4-49); HEMOGLOBIN 7.1 GM/dL (11.7-16.9); MCH 26.7 pg (25.7-33.7); MCHC 31.3 g/dl (32.0-35.9); MEAN CELL VOLUME 85.6 fl (80-96); MEAN PLT VOLUME 9.2 fl (7.5-11.1); PLATELET COUNT 277 10^3/uL (134-434); RBC 2.67 M/mm3 (4.00-5.60); RDW 17.8 % (11.9-15.9); WHITE BLOOD COUNT 16.7 K/mm3 (4.0-10.0)
[2024-04-19 16:14] LABS: POTASSIUM 3.6 mmol/L (3.5-5.1)
[2024-04-19 16:16] LABS: CALCIUM 9.5 mg/dL (8.5-10.1)
[2024-04-19] MEDS: VASopressin 40 UNITS/100 ML BAG IV SCH (16:16)
[2024-04-19 16:17] LABS: BLOOD UREA NITROGEN 56.4 mg/dL (7-18)
[2024-04-19 16:20] LABS: CREATININE 0.7 mg/dL (0.55-1.3)
[2024-04-19 16:22] LABS: BILIRUBIN,TOTAL 0.2 mg/dL (0.2-1); TOT PROT 5.3 g/dl (6.4-8.2)
[2024-04-19 17:09] LABS: ANISOCYTOSIS 2+; MACROCYTOSIS 0
[2024-04-20 07:31] LABS: HEMATOCRIT 21.5 % (35.4-49); MCH 27.4 pg (25.7-33.7); MCHC 31.7 g/dl (32.0-35.9); MEAN CELL VOLUME 86.7 fl (80-96); MEAN PLT VOLUME 9.5 fl (7.5-11.1); PLATELET COUNT 281 10^3/uL (134-434); RBC 2.48 M/mm3 (4.00-5.60); WHITE BLOOD COUNT 17.1 K/mm3 (4.0-10.0)
[2024-04-20 07:37] LABS: CALCIUM 9.3 mg/dL (8.5-10.1)
[2024-04-20 07:38] LABS: BLOOD UREA NITROGEN 57.6 mg/dL (7-18)
[2024-04-20 07:41] LABS: CREATININE 0.8 mg/dL (0.55-1.3); PHOSPHOROUS 3.8 mg/dL (2.5-4.9)
[2024-04-20 07:43] LABS: BILIRUBIN,TOTAL 0.2 mg/dL (0.2-1); TOT PROT 5.1 g/dl (6.4-8.2)
[2024-04-20 07:48] LABS: HEMOGLOBIN 6.8 GM/dL (11.7-16.9)
[2024-04-20 09:09] LABS: ANISOCYTOSIS 0; MACROCYTOSIS 0
[2024-04-20 17:41] LABS: HEMATOCRIT 25.5 % (35.4-49); MCH 27.4 pg (25.7-33.7); MCHC 31.5 g/dl (32.0-35.9); MEAN CELL VOLUME 86.9 fl (80-96); PLATELET COUNT 247 10^3/uL (134-434); RBC 2.93 M/mm3 (4.00-5.60); RDW 16.7 % (11.9-15.9); WHITE BLOOD COUNT 17.8 K/mm3 (4.0-10.0)
[2024-04-20 19:10] LABS: ANISOCYTOSIS 1+; MACROCYTOSIS 1+
[2024-04-20] MEDS ORDERED: ACETAMINOPHEN 1000 MG/100 ML BAG IVPB PRN (23:09)
[2024-04-20 23:26] LABS: ARTERIAL BLD GAS O2 SATURATION 90.4 % (95-98); ARTERIAL BLOOD GAS BASE EXCESS -2.3 mmol/L (-2-2); ARTERIAL BLOOD GAS PO2 74.5 mmHg (80-100)
[2024-04-20 23:28] LABS: ARTERIAL BLOOD GAS pH 7.173 (7.350-7.450)
[2024-04-21 07:59] LABS: HEMOGLOBIN 7.9 GM/dL (11.7-16.9); MCH 27.6 pg (25.7-33.7); MCHC 31.7 g/dl (32.0-35.9); MEAN CELL VOLUME 86.8 fl (80-96); MEAN PLT VOLUME 9.4 fl (7.5-11.1); PLATELET COUNT 216 10^3/uL (134-434); RBC 2.88 M/mm3 (4.00-5.60); RDW 17.3 % (11.9-15.9); WHITE BLOOD COUNT 20.6 K/mm3 (4.0-10.0)
[2024-04-21 08:27] LABS: CHLORIDE 101 mmol/L (98-107); SODIUM 140 mmol/L (136-145)
[2024-04-21 08:38] LABS: ANION GAP 6 mmol/L (4-13); BLOOD UREA NITROGEN 59.2 mg/dL (7-18); CALCIUM 9.6 mg/dL (8.5-10.1); CO2 33 mmol/L (21-32); GLUCOSE,RANDOM 86 mg/dL (74-106); MAGNESIUM 2.1 mg/dL (1.8-2.4)
[2024-04-21 08:41] LABS: PHOSPHOROUS 3.7 mg/dL (2.5-4.9)
[2024-04-21 08:42] LABS: CREATININE 0.9 mg/dL (0.55-1.3); SGOT/AST 12 U/L (15-37)
[2024-04-21 08:43] LABS: BILIRUBIN,TOTAL 0.2 mg/dL (0.2-1); TOT PROT 5.1 g/dl (6.4-8.2)
[2024-04-21 08:45] LABS: ALK PHOS 125 U/L (45-117)
[2024-04-21 08:49] LABS: SGPT/ALT < 6 U/L (13-61)
[2024-04-21] MEDS: MIDAZOLAM HCL 2 MG/2 ML SINGLE DOSE VIAL IVPUSH ONE (10:14)
[2024-04-21] MEDS: MORPHINE SULFATE/0.9% NACL/PF 100 MG/100 ML BAG IVPB SCH (10:16)
[2024-04-21 11:41] LABS: ARTERIAL BLOOD GAS BASE EXCESS -0.9 mmol/L (-2-2); ARTERIAL BLOOD GAS PO2 86.2 mmHg (80-100); ARTERIAL BLOOD GAS pH 7.203 (7.350-7.450)
[2024-04-21 11:50] LABS: ALLENS TEST POSITIVE
[2024-04-21 11:51] LABS: VENT RATE 34
[2024-04-21] MEDS: PROPOFOL 1,000,000 MCG/100 ML VIAL IVPUSH SCH (13:25)
[2024-04-21] MEDS: AMINO ACIDS/PROTEIN HYDROLYS 30 ML LIQUID.PKT PO SCH (17:39)
[2024-04-22 06:08] LABS: ARTERIAL BLD GAS O2 SATURATION 93.9 % (95-98); ARTERIAL BLOOD GAS BASE EXCESS -3.2 mmol/L (-2-2); ARTERIAL BLOOD GAS PO2 87.4 mmHg (80-100)
[2024-04-22 06:12] LABS: ALLENS TEST POSITIVE; VENT MODE A/C; VENT RATE 34
[2024-04-22 06:13] LABS: ARTERIAL BLOOD GAS pH 7.182 (7.350-7.450)
[2024-04-22 07:28] LABS: HEMATOCRIT 25.3 % (35.4-49); MCH 27.6 pg (25.7-33.7); MCHC 31.6 g/dl (32.0-35.9); MEAN CELL VOLUME 87.1 fl (80-96); MEAN PLT VOLUME 9.5 fl (7.5-11.1); PLATELET COUNT 166 10^3/uL (134-434); RDW 17.3 % (11.9-15.9)
[2024-04-22 07:46] LABS: CHLORIDE 100 mmol/L (98-107); POTASSIUM 3.9 mmol/L (3.5-5.1); SODIUM 138 mmol/L (136-145)
[2024-04-22 07:55] LABS: CALCIUM 9.7 mg/dL (8.5-10.1)
[2024-04-22 07:56] LABS: ALBUMIN 0.9 g/dl (3.4-5.0); ANION GAP 6 mmol/L (4-13); BLOOD UREA NITROGEN 61.4 mg/dL (7-18); CO2 32 mmol/L (21-32); GLUCOSE,RANDOM 89 mg/dL (74-106); MAGNESIUM 2.2 mg/dL (1.8-2.4)
[2024-04-22 07:58] LABS: CREATININE 1.2 mg/dL (0.55-1.3)
[2024-04-22 07:59] LABS: PHOSPHOROUS 4.5 mg/dL (2.5-4.9); SGOT/AST 12 U/L (15-37)
[2024-04-22 08:00] LABS: BILIRUBIN,TOTAL 0.2 mg/dL (0.2-1); TOT PROT 5.2 g/dl (6.4-8.2)
[2024-04-22 08:01] LABS: ALK PHOS 127 U/L (45-117)
[2024-04-22 08:02] LABS: SGPT/ALT < 6 U/L (13-61)
[2024-04-22 10:25] LABS: ANISOCYTOSIS 1+; MACROCYTOSIS 0; OVALOCYTE 1+
[2024-04-22] MEDS: FUROSEMIDE 40 MG/4 ML INJECTABLE VIAL IVPUSH ONE (11:18)
[2024-04-22] MEDS: NOREPINEPHRINE BITARTRATE/D5W 8 MG/250 ML BAG IVPB SCH (21:29)
[2024-04-23 06:05] LABS: ARTERIAL BLD GAS O2 SATURATION 88.9 % (95-98); ARTERIAL BLOOD GAS BASE EXCESS -2.2 mmol/L (-2-2); ARTERIAL BLOOD GAS PO2 69.1 mmHg (80-100)
[2024-04-23 06:21] LABS: ARTERIAL BLOOD GAS pH 7.193 (7.350-7.450)
[2024-04-23 06:24] LABS: VENT MODE A/C; VENT RATE 34
[2024-04-23 08:04] LABS: HEMATOCRIT 26.4 % (35.4-49); HEMOGLOBIN 8.3 GM/dL (11.7-16.9); MCH 27.7 pg (25.7-33.7); MCHC 31.6 g/dl (32.0-35.9); MEAN CELL VOLUME 87.9 fl (80-96); MEAN PLT VOLUME 10.5 fl (7.5-11.1); PLATELET COUNT 143 10^3/uL (134-434); RDW 17.7 % (11.9-15.9); WHITE BLOOD COUNT 24.3 K/mm3 (4.0-10.0)
[2024-04-23 08:29] LABS: BLOOD UREA NITROGEN 63.1 mg/dL (7-18); MAGNESIUM 2.2 mg/dL (1.8-2.4)
[2024-04-23 08:33] LABS: CREATININE 1.5 mg/dL (0.55-1.3); PHOSPHOROUS 5.2 mg/dL (2.5-4.9)
[2024-04-23] MEDS: FLUDROCORTISONE ACETATE 0.1 MG TABLET (FP) PO SCH (13:50)
[2024-04-23] MEDS: HYDROCORTISONE SOD SUCCINATE 100 MG/2 ML VIAL IVPUSH SCH (13:50)
[2024-04-23] MEDS ORDERED: EPINEPHrine 1:1,000 1,000 MCG in DEXTROSE 5%-WATER - 249 ML IVPB SCH (14:45)
[2024-04-23 15:09] LABS: ARTERIAL BLD GAS O2 SATURATION 96.8 % (95-98); ARTERIAL BLOOD GAS BASE EXCESS -3.5 mmol/L (-2-2); ARTERIAL BLOOD GAS PO2 119.5 mmHg (80-100)
[2024-04-23 15:17] LABS: VENT RATE 34
[2024-04-24 07:28] LABS: HEMATOCRIT 24.7 % (35.4-49); HEMOGLOBIN 7.6 GM/dL (11.7-16.9); MCH 27.1 pg (25.7-33.7); MCHC 30.7 g/dl (32.0-35.9); MEAN CELL VOLUME 88.4 fl (80-96); MEAN PLT VOLUME 10.6 fl (7.5-11.1); PLATELET COUNT 132 10^3/uL (134-434); RBC 2.79 M/mm3 (4.00-5.60); RDW 18.2 % (11.9-15.9); WHITE BLOOD COUNT 20.9 K/mm3 (4.0-10.0)
[2024-04-24 07:38] LABS: CHLORIDE 95 mmol/L (98-107); POTASSIUM 4.6 mmol/L (3.5-5.1); SODIUM 133 mmol/L (136-145)
[2024-04-24 07:41] LABS: CALCIUM 9.3 mg/dL (8.5-10.1)
[2024-04-24 07:42] LABS: ALBUMIN 0.8 g/dl (3.4-5.0); ANION GAP 9 mmol/L (4-13); BLOOD UREA NITROGEN 69.6 mg/dL (7-18); CO2 29 mmol/L (21-32); GLUCOSE,RANDOM 135 mg/dL (74-106)
[2024-04-24 07:45] LABS: BILIRUBIN,DIRECT 0.1 mg/dL (0.0-0.2); CREATININE 1.8 mg/dL (0.55-1.3); PHOSPHOROUS 6.1 mg/dL (2.5-4.9); SGOT/AST 20 U/L (15-37); SGPT/ALT < 6 U/L (13-61)
[2024-04-24 07:47] LABS: BILIRUBIN,TOTAL 0.3 mg/dL (0.2-1); TOT PROT 4.8 g/dl (6.4-8.2)
[2024-04-24 07:48] LABS: ALK PHOS 119 U/L (45-117)
[2024-04-24 08:04] LABS: ARTERIAL BLD GAS O2 SATURATION 94.5 % (95-98); ARTERIAL BLOOD GAS BASE EXCESS -4.7 mmol/L (-2-2)
[2024-04-24 08:08] LABS: VENT MODE A/C; VENT RATE 34
[2024-04-24 09:18] LABS: ANISOCYTOSIS 1+; MACROCYTOSIS 0
[2024-04-25] MEDS: PHENYLEPHRINE NS PREMIX 50,000 MCG/500 ML BAG CVP SCH (04:00)
[2024-04-25 06:34] LABS: ARTERIAL BLD GAS O2 SATURATION 92.5 % (95-98); ARTERIAL BLOOD GAS BASE EXCESS -11.9 mmol/L (-2-2); ARTERIAL BLOOD GAS PO2 98.5 mmHg (80-100)
[2024-04-25 07:11] LABS: VENT MODE A/C; VENT RATE 34
[2024-04-25 07:51] LABS: HEMATOCRIT 21.8 % (35.4-49); MCH 27.6 pg (25.7-33.7); MCHC 30.2 g/dl (32.0-35.9); MEAN CELL VOLUME 91.4 fl (80-96); MEAN PLT VOLUME 10.6 fl (7.5-11.1); PLATELET COUNT 80 10^3/uL (134-434); RBC 2.38 M/mm3 (4.00-5.60); RDW 18.4 % (11.9-15.9); WHITE BLOOD COUNT 21.1 K/mm3 (4.0-10.0)
[2024-04-25 08:05] LABS: POTASSIUM 4.7 mmol/L (3.5-5.1)
[2024-04-25 08:10] LABS: ALBUMIN 0.8 g/dl (3.4-5.0); BLOOD UREA NITROGEN 74.8 mg/dL (7-18); CALCIUM 9.3 mg/dL (8.5-10.1)
[2024-04-25 08:11] LABS: MAGNESIUM 2.2 mg/dL (1.8-2.4)
[2024-04-25 08:12] LABS: BILIRUBIN,TOTAL 0.4 mg/dL (0.2-1)
[2024-04-25 08:13] LABS: CREATININE 2.1 mg/dL (0.55-1.3); PHOSPHOROUS 6.6 mg/dL (2.5-4.9)
[2024-04-25 08:15] LABS: TOT PROT 4.6 g/dl (6.4-8.2)
[2024-04-25] MEDS ORDERED: POTASSIUM CHLORIDE ORAL LIQUID 20 MEQ/15 ML GT ONE (08:15)
[2024-04-25 08:29] LABS: HEMOGLOBIN 6.6 GM/dL (11.7-16.9)
[2024-04-25] MEDS: SODIUM BICARBONATE 8.4% - 75 MEQ in SODIUM CHLORIDE 0.45% 950 ML IV SCH (11:45)
[2024-04-25 12:34] LABS: ANISOCYTOSIS 1+; MACROCYTOSIS 0
[2024-04-25 12:36] LABS: PLATELET ESTIMATE ADEQUATE
[2024-04-25 17:05] LABS: ARTERIAL BLD GAS O2 SATURATION 83.7 % (95-98); ARTERIAL BLOOD GAS BASE EXCESS -14.2 mmol/L (-2-2); ARTERIAL BLOOD GAS PO2 77.6 mmHg (80-100)
[2024-04-25 17:06] LABS: VENT MODE A/C; VENT RATE 34
[2024-04-25 17:07] LABS: ARTERIAL BLOOD GAS pH 6.923 (7.350-7.450)
[2024-04-25 18:44] LABS: BASO % 0.2 % (0-2.0); HEMATOCRIT 24.3 % (35.4-49); HEMOGLOBIN 7.4 GM/dL (11.7-16.9); LYMPH % 1.4 % (8-40); MCH 28.1 pg (25.7-33.7); MCHC 30.3 g/dl (32.0-35.9); MEAN CELL VOLUME 92.7 fl (80-96); MONO % 0.8 % (3.8-10.2); NEUT % 97.6 % (42.8-82.8); RBC 2.62 M/mm3 (4.00-5.60); RDW 17.2 % (11.9-15.9); WHITE BLOOD COUNT 20.7 K/mm3 (4.0-10.0)
[2024-04-25] MEDS: NOREPINEPHRINE BITARTRATE 16,000 MCG in DEXTROSE 5%-WATER - 500 ML IVPB SCH (19:52)
[2024-04-25 20:00] VITALS: RESP 34
[2024-04-25 20:53] LABS: ANISOCYTOSIS 2+; MACROCYTOSIS 1+
[2024-04-25 20:54] LABS: PLATELET COUNT 46 10^3/uL (134-434)
[2024-04-25] MEDS: SODIUM BICARBONATE 8.4% - 150 MEQ in DEXTROSE 5%-WATER - 950 ML IVPB SCH (21:29)
[2024-04-26 03:20] VITALS: BP 61/46; PULSE 113; TEMP 97
== END 2024-04-26 02:15 | disposition expired | DRG 870 ==
LOC: JER 17:41 → JICU 19:50 → J2W 04-13 02:38 → JICU 04-13 21:22
PROVIDERS: ADMIT Internal Medicine Pulmonary Disease; ATTEND Internal Medicine Pulmonary Disease
PROC: 5A1955Z Respiratory Ventilation, Greater than 96 Consecutive Hours (ICD-10-PCS; principal; 2024-04-05)
PROC: 4A133B1 Monitoring of Arterial Pressure, Peripheral, Percutaneous Approach (ICD-10-PCS; 2024-04-06)
PROC: 4A133J1 Monitoring of Arterial Pulse, Peripheral, Percutaneous Approach (ICD-10-PCS; 2024-04-06)
PROC: 05HN33Z Insertion of Infusion Device into Left Internal Jugular Vein, Percutaneous Approach (ICD-10-PCS; 2024-04-06)
PROC: B544ZZA Ultrasonography of Left Jugular Veins, Guidance (ICD-10-PCS; 2024-04-06)
PROC: 30233N1 Transfusion of Nonautologous Red Blood Cells into Peripheral Vein, Percutaneous Approach (ICD-10-PCS; 2024-04-10)
PROC: 4A133B1 Monitoring of Arterial Pressure, Peripheral, Percutaneous Approach (ICD-10-PCS; 2024-04-13)
PROC: 4A133J1 Monitoring of Arterial Pulse, Peripheral, Percutaneous Approach (ICD-10-PCS; 2024-04-13)
PROC: 05HN33Z Insertion of Infusion Device into Left Internal Jugular Vein, Percutaneous Approach (ICD-10-PCS; 2024-04-13)
PROC: B544ZZA Ultrasonography of Left Jugular Veins, Guidance (ICD-10-PCS; 2024-04-13)
PROC: 0B21XFZ Change Tracheostomy Device in Trachea, External Approach (ICD-10-PCS; 2024-04-21)
PROC: 05HM33Z Insertion of Infusion Device into Right Internal Jugular Vein, Percutaneous Approach (ICD-10-PCS; 2024-04-24)
PROC: B543ZZA Ultrasonography of Right Jugular Veins, Guidance (ICD-10-PCS; 2024-04-24)
DX: A41.52 Sepsis due to Pseudomonas (principal); L89.154 Pressure ulcer of sacral region, stage 4; R65.21 Severe sepsis with septic shock; J15.1 Pneumonia due to Pseudomonas; J80 Acute respiratory distress syndrome; R53.2 Functional quadriplegia; E87.20 Acidosis, unspecified; F11.20 Opioid dependence, uncomplicated; G93.1 Anoxic brain damage, not elsewhere classified; K56.7 Ileus, unspecified; N17.9 Acute kidney failure, unspecified; R64 Cachexia; Z99.11 Dependence on respirator [ventilator] status; I25.10 Atherosclerotic heart disease of native coronary artery without angina pectoris; D64.9 Anemia, unspecified; I10 Essential (primary) hypertension; E78.5 Hyperlipidemia, unspecified; K21.9 Gastro-esophageal reflux disease without esophagitis; E11.9 Type 2 diabetes mellitus without complications; J44.9 Chronic obstructive pulmonary disease, unspecified; Z93.1 Gastrostomy status; Z93.0 Tracheostomy status; K59.00 Constipation, unspecified; E87.6 Hypokalemia; E83.52 Hypercalcemia; N40.0 Benign prostatic hyperplasia without lower urinary tract symptoms
CPT/HCPCS: 0241U-QW; 36415; 36430; 36600; 70450-TC; 71045-TC-FY; 74018-TC-FY; 80048; 80053; 80061; 80076; 81003; 82306; 82308; 82550; 82570; 82728; 82803; 82962; 83036; 83540; 83550; 83605; 83735; 83970; 84100; 84132; 84300; 84484; 85025; 85027; 85045; 85610; 85730; 86140; 86850; 86900; 86901; 86922; 87040; 87070; 87086; 87102; 87184; 87186; 87205; 87210; 87633; 93005; 93010; 93971; 94002; 94640; 99291; J0131; J1644; J3490; P9038; P9058